=== PATIENT | male | born 1945 | race Caucasian/White ===

== ENCOUNTER 2017-01-09 10:26 | Inpatient (IN) | payer BC ==
--- NOTE | ~2017-01-09 | CN ---
Consultation Report [facility] [address] [place]. [address] NAME: AMOL PAYNE : 43 STATUS : ADM IN [facility]#: [id number] AGE: 71 ADM/REG DATE : 01/09/17 MR#: [id number] REPORT SERV DATE: 01/10/17 DICTATED BY: NKECHI TROY DATE: 01/09/17 REPORT STATUS : Draft TRANSCRIBED BY: MODL DATE: 01/09/17 CONSULTATION REPORT DATE OF CONSULTATION: Thank you for the opportunity to consult on this patient. This is a consult for neutropenic sepsis and for transfer to the critical care unit. HISTORY OF PRESENT ILLNESS: Mr. Payne is an unfortunate 71-year-old man with a history of acute myeloid leukemia, status post chemotherapy who was admitted from the Hematology/Oncology Service today because of pancytopenia and fever. He was found to be very pancytopenic with a fever of 101 at home. He was found to be hypotensive on admission and transferred to the intensive care for further management. PAST MEDICAL HISTORY: Prior to this is significant for AML, hypertension, hypercholesterolemia, and seasonal allergies. SOCIAL HISTORY: Negative for tobacco abuse, alcohol abuse, or illicit drug use. FAMILY HISTORY: Noncontributory to this acute presentation. REVIEW OF SYSTEMS: Review of 10 systems was performed with the patient and is positive for what was noted above. He denied any chest pain and the 10 systems were positive as noted. PHYSICAL EXAMINATION: GENERAL: He appears fatigued, but is in no acute respiratory distress. VITAL SIGNS: Remarkable for hypotension. HEENT: Normocephalic and atraumatic. NECK: Supple. No lymphadenopathy. No JVD. CHEST: Symmetric with good expansion bilaterally. LUNGS: Clear to auscultation and percussion bilaterally. CARDIOVASCULAR: He has S1 and S2, which are regular rate and rhythm. ABDOMEN: Benign. EXTREMITIES: He has petechiae throughout in the lower extremities, though they are scarce and has no clubbing or cyanosis. ASSESSMENT AND PLAN: Neutropenic sepsis. The patient is hypotensive, requiring pressors with septic shock in the setting of profound neutropenia and pancytopenia. He is receiving blood transfusion. He has been started on adequate antibiotic therapy and is now started on pressors. He has good central access with a recently placed port, peripheral access, and we will monitor him in the intensive care unit. Unfortunately, he has a high risk of complications and morbidity and mortality because of his pancytopenia and febrile illness while neutropenic. He is a full code per his decision and family request, and we will watch him while he is in the ICU. Consultation Report [facility] [address] [place]. [address] NAME: AMOL PAYNE : 43 STATUS : ADM IN PAT#: [id number] AGE: 71 ADM/REG DATE : 01/09/17 MR#: [id number] REPORT SERV DATE: 01/10/17 DICTATED BY: NKECHI TROY DATE: 01/09/17 REPORT STATUS : Draft TRANSCRIBED BY: EMELIA DATE: 01/09/17 DOC/EMELIA Nkechi Troy M.D. / [id number] CC: Maynor Tran II, MD
--- NOTE | ~2017-01-09 | HP ---
History And Physical [facility] [address] [place]. [address] NAME: AMOL PAYNE : 43 STATUS : ADM IN [facility]#: [id number] AGE: 71 ADM/REG DATE : 01/09/17 MR#: [id number] REPORT SERV DATE: 01/09/17 DICTATED BY: BRIDGETTE BANERJEE II DATE: 01/09/17 REPORT STATUS : Draft TRANSCRIBED BY: MODL DATE: 01/09/17 DATE OF ADMISSION: 01/09/2017 PRIMARY ONCOLOGIST: Dr. Duff. CHIEF COMPLAINT: Fever and chills in the setting of neutropenia. HISTORY OF PRESENT ILLNESS: The patient is a 71-year-old male with history of AML, status post chemotherapy, hypertension, hyperlipidemia, and allergies, who presented to Dr. Duff's office after a fever over 101 at home. He states, he recently had one of his lower right molars extracted due to an infection in the tooth with significant decay. He was having some fevers and pain prior to the extraction and was placed on oral antibiotics prior to surgery, but even after surgery, the patient continues to spike fevers and in Dr. Duff's office was up to 103. The patient is visibly in rigors and complains mainly of pain surrounding his lower right teeth. Otherwise, denies any nausea, vomiting, and diarrhea. Denies any shortness of breath, cough. He has chronic allergies with chronic sinusitis. Denies any dysuria. He has been extremely fatigued after recent chemotherapy. Otherwise, no other complaints. REVIEW OF SYSTEMS: 10-point review of systems otherwise negative except for HPI. PAST MEDICAL HISTORY: 1. AML on chemotherapy, followed by Dr. Duff. 2. Hyperlipidemia. 3. Hypertension. 4. Seasonal allergies. 5. Depression and anxiety. PAST SURGICAL HISTORY: Port placement. FAMILY HISTORY: Anemia in his mother. SOCIAL HISTORY: The patient denies any alcohol, tobacco, or drug use. He is currently and has been a commercial real estate broker. HOME MEDICATIONS: Currently pending refrigerator repair technician evaluation. PHYSICAL EXAMINATION: VITAL SIGNS: Temperature 103.2, pulse 120, respirations 20, O2 saturation 98% on room air. GENERAL: The patient is alert and oriented x3, in rigors, no acute distress. NECK: Supple. Nontender. No lymphadenopathy or thyromegaly. HEENT: Mucous membranes. Right lower premolar recently extracted with some necrotic- appearing gingival tissue and some possible slight mild erythema, but no obvious abscess or odontogenic process, otherwise pupils equal, round, reactive to light. Conjunctivae clear. RESPIRATORY: Lungs clear to auscultation bilaterally. No wheezes, rhonchi, or rales. History And Physical [address] [address] NAME: AMOL PAYNE : 43 STATUS : ADM IN [facility]#: [id number] AGE: 71 ADM/REG DATE : 01/09/17 MR#: [id number] REPORT SERV DATE: 01/09/17 DICTATED BY: BRIDGETTE BANERJEE II DATE: 01/09/17 REPORT STATUS : Draft TRANSCRIBED BY: EMELIA DATE: 01/09/17 Nonlabored breathing. CARDIOVASCULAR: Regular rate and rhythm. No murmurs, rubs, or gallops. ABDOMEN: Soft, nontender, nondistended. Normoactive bowel sounds. EXTREMITIES: No cyanosis, clubbing, or edema. SKIN: No lesions, rashes, or wounds. NEURO: No focal deficits. LABORATORY DATA: From the office today showed white blood cell count of 0.3, hemoglobin of 5.8, platelets 2, other labs pending. ASSESSMENT AND PLAN: The patient is a 71-year-old male with: 1. Febrile neutropenia with most apparent source likely odontogenic. We will start him on Zosyn. Blood cultures have been drawn. We will also check a UA and a chest x-ray. 2. Recent odontogenic infection, status post tooth extraction. No obvious other areas of abscessed teeth. We will treat as per above. 3. Acute myeloid leukemia. Chemo per Dr. Duff. 4. Pancytopenia, hemoglobin is quite low as well as platelets, so we will transfuse both. The patient is full code. ARABELLA/EMELIA Bridgette Banerjee II, MD / [id number] CC: MD Ba Burris II, MD
--- NOTE | ~2017-01-09 | IDS ---
Interim Discharge Summary [facility] [address] [place]. [address] NAME: AMOL PAYNE : 43 STATUS : ADM IN [facility]#: [id number] AGE: 71 ADM/REG DATE : 01/09/17 MR#: [id number] REPORT SERV DATE: 01/14/17 DICTATED BY: JAMES MARISCAL IV DATE: 01/14/17 REPORT STATUS : Draft TRANSCRIBED BY: MODOmar DATE: 01/14/17 ADMISSION DATE: 01/09/2017 DISCHARGE DATE: DATE OF TRANSFER TO THE ICU: 01/10/2017. DATE OF TRANSFER TO THE FLOOR: 01/14/2017. ADMITTING DIAGNOSES: 1. Enterobacter sepsis with shock. 2. Neutropenic fevers. 3. Acute myelogenous leukemia. 4. Recent removal of a decayed molar. 5. Hypertension. 6. Elevated cholesterol. 7. Depression. CONSULTANTS: Infectious Disease was consulted on 01/11/2017 and continued to follow the patient. [facility] had been consulted on admission and continued to follow the patient as well. PROCEDURES: The patient is scheduled to undergo a facial CT scan with contrast today. The patient has received a total of two packs of platelets and 5 units of packed red blood cells. CURRENT MEDICATIONS: The patient is on Granix 480 mcg subcu daily, Lexapro 10 mg daily, level 2 insulin sliding scale twice a day, Protonix 40 mg daily, Xanax 0.5 mg at bedtime, and Zosyn 3.375 g q.8 hours. HOSPITAL COURSE: The patient was admitted to the hospitalist service on 01/09/2017 with neutropenic fevers. Because of hypotension, he was transferred to the ICU on 01/10/2017. He required vasopressors until 01/13/2017, at which time, they were successfully discontinued. He had 1 out of 2 blood cultures positive for Enterobacter from his port. ID was consulted and he had gentamicin added to his Zosyn with discontinuation of empiric vancomycin. The patient noted clinical improvement, however, remained neutropenic. He had Granix added by [facility] today. He had evidence for his previous tooth pull with some macerated tissue at the site, however, no obvious abnormalities. However, because of persistent discomfort in his neutropenic state, a facial CT with contrast was ordered. He was initially hyperglycemic with insulin sliding scale, which has been decreased to b.i.d. He has required transfusions of blood and platelets for low counts which are continuing to be followed. It was felt that he was stable for transfer back to the floor and orders were written on 01/14/2017 with the hospitalist asked to resume responsibilities. NM/EMELIA Interim Discharge Summary [facility] [id number] [place]. [address] NAME: AMOL PAYNE : 43 STATUS : ADM IN PAT#: [id number] AGE: 71 ADM/REG DATE : 01/09/17 MR#: [id number] REPORT SERV DATE: 01/14/17 DICTATED BY: JAMES MARISCAL IV DATE: 01/14/17 REPORT STATUS : Draft TRANSCRIBED BY: EMELIA DATE: 01/14/17 James Mariscal IV, M.D. / [id number] CC: MD Ba Burris II, MD
--- NOTE | ~2017-01-09 | DS ---
Discharge Summary [facility] [address] [place]. [address] NAME: AMOL PAYNE : 43 STATUS : DIS IN PAT#: [id number] AGE: 71 ADM/REG DATE : 01/09/17 MR#: [id number] REPORT SERV DATE: 01/20/17 DICTATED BY: MER WATKINS DATE: 01/20/17 REPORT STATUS : Draft TRANSCRIBED BY: MODL DATE: 01/20/17 ADMISSION DATE: 01/09/2017 DISCHARGE DATE: 01/20/2017 REASON FOR ADMISSION: Septic shock secondary to Enterobacter bacteremia. Please refer to Dr. Luigi Troy's history and physical dated 01/10/2017, for complete details regarding the patient's admission. In brief, the patient was initially admitted to the Hospitalist Service and transferred over to the Super[facility] Department Service for developing a septic shock. HOSPITAL COURSE: From admission to 01/14/2017, please refer to the interim summary done by the applied marine physics professor. In brief, the patient was treated for Enterobacter bacteremia causing septic shock. Infectious Disease was consulted. Dr. Perry followed the patient throughout. He was weaned off pressors and then transferred to the floor on 01/15/2017. Dr. Knott who is the patient's primary oncologist had followed the patient throughout the hospitalization for his AML. He had been treated with broad-spectrum antibiotics. Infectious Disease was following the patient after he was transferred to the floor. He continued to have neutropenic fever of unknown etiology. Dr. Mixon was consulted who was the surgeon, who took out the patient's teeth. Dr. Lora had ordered a CT scan of the patient's face, which was reported as cellulitis in the surrounding soft tissues along with concern of a periapical abscess; however, Dr. Mixon disagreed. At any rate, Infectious Disease has had broadened spectrum of the antibiotics including Flagyl and Diflucan and valacyclovir as the patient was developing fever blisters. Repeat blood culture showed no growth today. He has finally been afebrile for the past 48 hours, and he has reached maximal hospitalization. He did receive several platelet transfusions. Keeping in mind that he has been afebrile and on just oral Levaquin, he will be discharged home today in stable condition. DISCHARGE DIAGNOSES: Septic shock secondary to Enterobacter bacteremia, now resolved; pancytopenia secondary to AML; neutropenic fever, now afebrile for 48 hours; major depressive disorder, anxiety disorder; AML; acute on chronic anemia. PROCEDURES: Include consultation with Dr. Mixon, intensive care unit monitoring, consultation with Dr. Jenkinss, Dr. Mckeon, and Dr. Perry; CT scan of the face with contrast; chest x-ray. DISCHARGE MEDICATIONS: Include Xanax 0.5 mg at bedtime, Peridex 15 mL three times a day, Lexapro 10 mg daily, gabapentin 100 mg twice a day, Levaquin 750 mg every day for at least two weeks, Protonix 40 mg daily, vitamin B12, multivitamin, Refresh vitamin D, tramadol p.r.n. pain, Lortab 5/325 mg every six hours as needed for pain #30 given. The patient will follow up closely with Dr. Knott in two days as an outpatient. Spending over 30 minutes in discharge planning and coordination of care of Mr. Payne. DICTATED BY: Mer Watkins MD Discharge Summary [address] [address] NAME: AMOL PAYNE : 43 STATUS : DIS IN PAT#: [id number] AGE: 71 ADM/REG DATE : 01/09/17 MR#: [id number] REPORT SERV DATE: 01/20/17 DICTATED BY: MER WATKINS DATE: 01/20/17 REPORT STATUS : Draft TRANSCRIBED BY: MODL DATE: 01/20/17 CHEN Mer Watkins MD / [id number] CC: MD Ba Pruitt MD John Spann, D.D.S. Mark Anderson, M.D. Edward Arrowsmith, M.D.
[~2017-01-09 10:26] MED LIST: ALEVE220 MG PO; ALLEGRA180 PO; ALLERGY SHOT IM; ASAB PO; CO Q-10100 MG PO; CO Q-1050 MG PO; DSS PO; FISH OIL PO; FLAXSEED PO; FLONASE NAS; FOLATE PO; KRILLOIL PO; LEXAPRO10 PO; LOPID6 PO; MAGOX4 PO; MCZ125 PO; MULTIVIT/MIN PO; OXYCOD PO; PRIN20 PO; PROBIOTIC PO; PROSTATE PLUS; PROTONIX PO; REFRES1; STOOL SOFTENER OTC PO; VITAMIN B-121000 MC1 SL; VITAMIN D2000 UNIT PO; VITAMIN D3 PO; VITC500 PO; X5 PO; ZOFRAN4 PO; ZYRTEC ALLGY10 MG PO; [UNRECOGNIZED DRUG - OTHER]; [UNRECOGNIZED DRUG - OTHER] PO
[2017-01-09] MEDS ORDERED: NORCO1 TAB PO (12:08)
[2017-01-09] MEDS ORDERED: ULTRAM50 PO (12:10)
[2017-01-09] MEDS ORDERED: AMOXIL500C PO (12:10)
[2017-01-09 12:25] LABS: INTERNATIONAL NORMAL RATI 1.3 UNITS (-); PARTIAL THROMBO TIME 37.7 SEC (22.5-37.2); PROTIME (NOT ORD) 15.7 SEC (12.0-14.5)
[2017-01-09 13:14] LABS: A/G RATIO 0.9 (0.7-1.9); ALBUMIN 3.5 G/DL (3.5-5.0); BUN (BLOOD UREA NITROGEN) 17 MG/DL (6-23); CHLORIDE, SERUM 101 MMOL/L (96-112); CO2 (CARBON DIOXIDE) 27 MMOL/L (24-34); CREATININE 0.95 MG/DL (0.70-1.30); GFR AFRICAN AMERICAN 92 ML/MIN (>=60); GFR NON AFRICAN AMERICAN 80 ML/MIN (>=60); GLOBULIN 3.9 G/DL (2.5-4.1); POTASSIUM, SERUM 4.4 MMOL/L (3.5-5.3); SGOT(AST) 15 U/L (5-40); SGPT(ALT) 21 U/L (5-65); SODIUM, SERUM 137 MMOL/L (135-148); TOTAL PROTEIN 7.4 G/DL (6.0-8.5)
[2017-01-09 13:15] LABS: ALKALINE PHOSPHATASE 99 U/L (45-117); GLUCOSE, SERUM 140 MG/DL (60-99); TOTAL BILIRUBIN 1.2 MG/DL (0-1.2); ULTRASENSITIVE TSH 0.806 MCIU/ML (0.358-3.740)
[2017-01-09 18:35] LABS: ASCORBIC ACID (UR NOT ORDER) NEG (NEG); BILIRUBIN, URINE NEGATIVE (NEG); KETONE, URINE NEGATIVE (NEG); LEUKOCYTE ESTERASE(NOT OR NEG (NEG); WBC (NOT ORDERED) (RFLEX) 1 (0-5)
[2017-01-09 21:44] LABS: RBC DISTRIBUTION WIDTH 14.4 % (12.0-16.0)
[2017-01-09 21:49] LABS: RED CELL COUNT 1.26 10/6/uL (4.7-6.1); WHITE BLOOD CELLS 0.1 10/3/uL (4.5-10.5)
[2017-01-09 21:51] LABS: HEMATOCRIT 11.7 % (40.0-51.0); HEMOGLOBIN 4.1 g/dL (13.6-17.8); MEAN CORPUSCULAR HEMOGLOB 32.5 pg (26.0-34.0); MEAN CORPUSCULAR VOLUME 92.9 fL (80-100); PLATELET COUNT 3 10/3/uL (150-400)
[2017-01-09 21:54] LABS: MANUAL DIFF YES %
[2017-01-09 21:58] LABS: PROCALCITONIN 3.56 ng/mL (<0.5)
[2017-01-09 22:11] LABS: LYMPHOCYTES 95 %; MONOCYTES 5 %; MONOCYTES ABSOLUTE (CALC) 0.01 10/3/uL (0.21-1.20); TOTAL NUCLEATED CELLS 20
[2017-01-09 22:12] LABS: POIKILOCYTOSIS 1+ (5-10/OIF) (0-5/OIF)
[2017-01-10 04:40] LABS: CHLORIDE, SERUM 105 MMOL/L (96-112); CO2 (CARBON DIOXIDE) 24 MMOL/L (24-34); CREATININE 1.24 MG/DL (0.70-1.30); GFR AFRICAN AMERICAN 67 ML/MIN (>=60); GFR NON AFRICAN AMERICAN 58 ML/MIN (>=60); GLUCOSE, SERUM 162 MG/DL (60-99); POTASSIUM, SERUM 4.3 MMOL/L (3.5-5.3); SODIUM, SERUM 137 MMOL/L (135-148)
[2017-01-10 04:41] LABS: BUN (BLOOD UREA NITROGEN) 27 MG/DL (6-23); CALCIUM, SERUM 7.9 MG/DL (8.5-10.4)
[2017-01-10 04:46] LABS: MEAN CORPUS HGB CONC 35.6 g/dL (32.0-36.0); MEAN CORPUSCULAR HEMOGLOB 32.2 pg (26.0-34.0); MEAN CORPUSCULAR VOLUME 90.5 fL (80-100); RBC DISTRIBUTION WIDTH 14.2 % (12.0-16.0)
[2017-01-10 04:52] LABS: HEMOGLOBIN 6.4 g/dL (13.6-17.8); MANUAL DIFF YES %; PLATELET COUNT 25 10/3/uL (150-400); RED CELL COUNT 1.99 10/6/uL (4.7-6.1); WHITE BLOOD CELLS 0.2 10/3/uL (4.5-10.5)
[2017-01-10 05:50] LABS: PROCALCITONIN 84.47 ng/mL (<0.5)
[2017-01-10 06:23] LABS: BAND NEUTROPHILS 4 %; EOSINOPHILS 4 %; EOSINOPHILS ABSOLUTE (CALC) 0.01 10/3/uL (0.0-0.53); LYMPHOCYTES 86 %; LYMPHOCYTES ABSOLUTE (CALC) 0.17 10/3/uL (0.67-4.30); NEUTROPHILS ABSOLUTE (CALC) 0.02 10/3/uL (2.02-8.40); SEGMENTED NEUTROPHIL (0) 6 %; TOTAL NUCLEATED CELLS 50
[2017-01-10 06:24] LABS: POLYCHROMASIA 1+ (2-5/OIF) (0-1/OIF)
[2017-01-10 14:23] LABS: HEMOGLOBIN 7.4 g/dL (13.6-17.8); MEAN CORPUS HGB CONC 36.1 g/dL (32.0-36.0); MEAN CORPUSCULAR HEMOGLOB 31.8 pg (26.0-34.0); MEAN PLATELET VOLUME 10.7 fL (9.2-13.0); RBC DISTRIBUTION WIDTH 14.6 % (12.0-16.0); RED CELL COUNT 2.33 10/6/uL (4.7-6.1)
[2017-01-10 14:24] LABS: HEMOGLOBIN 7.4 g/dL (13.6-17.8)
[2017-01-10 14:25] LABS: HEMATOCRIT 20.5 % (40.0-51.0); PLATELET COUNT 14 10/3/uL (150-400); WHITE BLOOD CELLS 0.4 10/3/uL (4.5-10.5)
[2017-01-10 14:27] LABS: MANUAL DIFF YES %
[2017-01-10 14:28] LABS: HEMATOCRIT 20.4 % (40.0-51.0)
[2017-01-10 17:27] LABS: LYMPHOCYTES 91 %; LYMPHOCYTES ABSOLUTE (CALC) 0.36 10/3/uL (0.67-4.30); MONOCYTES 2 %; MONOCYTES ABSOLUTE (CALC) 0.01 10/3/uL (0.21-1.20); NEUTROPHILS ABSOLUTE (CALC) 0.03 10/3/uL (2.02-8.40); SEGMENTED NEUTROPHIL (0) 7 %; TOTAL NUCLEATED CELLS 100
[2017-01-10 17:29] LABS: ELLIPTOCYTES 1+ (3-10/OIF) (0-2/OIF); TEARDROP SHAPED RBCS OCC (0-2/OIF)
[2017-01-10 20:49] LABS: HEMOGLOBIN 7.5 g/dL (13.6-17.8)
[2017-01-10 20:53] LABS: HEMATOCRIT 20.2 % (40.0-51.0)
[2017-01-11 03:51] LABS: HEMATOCRIT 21.3 % (40.0-51.0); HEMOGLOBIN 7.7 g/dL (13.6-17.8); MEAN CORPUS HGB CONC 36.2 g/dL (32.0-36.0); MEAN CORPUSCULAR HEMOGLOB 31.6 pg (26.0-34.0); MEAN CORPUSCULAR VOLUME 87.3 fL (80-100); MEAN PLATELET VOLUME 11.4 fL (9.2-13.0); RED CELL COUNT 2.44 10/6/uL (4.7-6.1)
[2017-01-11 03:52] LABS: MANUAL DIFF YES %; PLATELET COUNT 13 10/3/uL (150-400); WHITE BLOOD CELLS 0.2 10/3/uL (4.5-10.5)
[2017-01-11 04:06] LABS: A/G RATIO 0.7 (0.7-1.9); ALBUMIN 2.7 G/DL (3.5-5.0); BUN (BLOOD UREA NITROGEN) 17 MG/DL (6-23); CALCIUM, SERUM 8.4 MG/DL (8.5-10.4); CHLORIDE, SERUM 108 MMOL/L (96-112); CO2 (CARBON DIOXIDE) 26 MMOL/L (24-34); CREATININE 0.88 MG/DL (0.70-1.30); GFR AFRICAN AMERICAN 99 ML/MIN (>=60); GFR NON AFRICAN AMERICAN 86 ML/MIN (>=60); GLUCOSE, SERUM 141 MG/DL (60-99); POTASSIUM, SERUM 3.8 MMOL/L (3.5-5.3); SGOT(AST) 19 U/L (5-40); SGPT(ALT) 21 U/L (5-65); SODIUM, SERUM 141 MMOL/L (135-148); TOTAL BILIRUBIN 1.3 MG/DL (0-1.2); TOTAL PROTEIN 6.7 G/DL (6.0-8.5)
[2017-01-11 04:07] LABS: ALKALINE PHOSPHATASE 83 U/L (45-117)
[2017-01-11 04:40] LABS: PROCALCITONIN 55.34 ng/mL (<0.5)
[2017-01-11 05:26] LABS: LYMPHOCYTES 96 %; LYMPHOCYTES ABSOLUTE (CALC) 0.19 10/3/uL (0.67-4.30); NEUTROPHILS ABSOLUTE (CALC) 0.01 10/3/uL (2.02-8.40); SEGMENTED NEUTROPHIL (0) 4 %; TOTAL NUCLEATED CELLS 25
[2017-01-11 05:28] LABS: ELLIPTOCYTES 1+ (3-10/OIF) (0-2/OIF); TEARDROP SHAPED RBCS OCC (0-2/OIF)
[2017-01-11 10:03] LABS: HEMOGLOBIN 7.3 g/dL (13.6-17.8)
[2017-01-11 10:08] LABS: HEMATOCRIT 19.8 % (40.0-51.0)
[2017-01-11 15:21] LABS: HEMOGLOBIN 7.2 g/dL (13.6-17.8)
[2017-01-11 15:25] LABS: HEMATOCRIT 19.9 % (40.0-51.0)
[2017-01-11 21:14] LABS: HEMOGLOBIN 7.7 g/dL (13.6-17.8)
[2017-01-11 21:18] LABS: HEMATOCRIT 20.8 % (40.0-51.0)
[2017-01-12 03:59] LABS: MEAN CORPUS HGB CONC 35.5 g/dL (32.0-36.0); MEAN CORPUSCULAR HEMOGLOB 31.5 pg (26.0-34.0); MEAN CORPUSCULAR VOLUME 88.7 fL (80-100); RBC DISTRIBUTION WIDTH 14.6 % (12.0-16.0); RED CELL COUNT 2.22 10/6/uL (4.7-6.1)
[2017-01-12 04:01] LABS: HEMATOCRIT 19.7 % (40.0-51.0); PLATELET COUNT 8 10/3/uL (150-400); WHITE BLOOD CELLS 0.2 10/3/uL (4.5-10.5)
[2017-01-12 04:02] LABS: MANUAL DIFF YES %
[2017-01-12 04:18] LABS: A/G RATIO 0.6 (0.7-1.9); ALBUMIN 2.4 G/DL (3.5-5.0); BUN (BLOOD UREA NITROGEN) 14 MG/DL (6-23); CALCIUM, SERUM 8.4 MG/DL (8.5-10.4); CHLORIDE, SERUM 109 MMOL/L (96-112); CO2 (CARBON DIOXIDE) 27 MMOL/L (24-34); CREATININE 0.74 MG/DL (0.70-1.30); GFR AFRICAN AMERICAN 107 ML/MIN (>=60); GFR NON AFRICAN AMERICAN 92 ML/MIN (>=60); GLOBULIN 3.8 G/DL (2.5-4.1); GLUCOSE, SERUM 129 MG/DL (60-99); POTASSIUM, SERUM 3.9 MMOL/L (3.5-5.3); SGOT(AST) 17 U/L (5-40); SGPT(ALT) 22 U/L (5-65); SODIUM, SERUM 139 MMOL/L (135-148); TOTAL BILIRUBIN 1.3 MG/DL (0-1.2); TOTAL PROTEIN 6.2 G/DL (6.0-8.5)
[2017-01-12 04:21] LABS: ALKALINE PHOSPHATASE 96 U/L (45-117)
[2017-01-12 04:32] LABS: LYMPHOCYTES 95 %; LYMPHOCYTES ABSOLUTE (CALC) 0.19 10/3/uL (0.67-4.30); NEUTROPHILS ABSOLUTE (CALC) 0.01 10/3/uL (2.02-8.40); SEGMENTED NEUTROPHIL (0) 5 %; TOTAL NUCLEATED CELLS 100
[2017-01-12 04:33] LABS: RBC MORPHOLOGY NORM (NORMAL)
[2017-01-12 09:08] LABS: HEMOGLOBIN 8.2 g/dL (13.6-17.8)
[2017-01-12 09:09] LABS: HEMATOCRIT 22.7 % (40.0-51.0)
[2017-01-12 10:40] LABS: PHOSPHORUS, SERUM 1.8 MG/DL (2.5-4.5)
[2017-01-12 14:45] LABS: HEMATOCRIT 17.9 % (40.0-51.0); HEMOGLOBIN 6.6 g/dL (13.6-17.8)
[2017-01-12 16:33] LABS: HEMATOCRIT 16.7 % (40.0-51.0); HEMOGLOBIN 6.1 g/dL (13.6-17.8)
[2017-01-12 21:21] LABS: WBC (NOT ORDERED) (RFLEX) 0 (0-5)
[2017-01-12 21:35] LABS: ASCORBIC ACID (UR NOT ORDER) NEG (NEG); BILIRUBIN, URINE NEGATIVE (NEG); KETONE, URINE NEGATIVE (NEG); LEUKOCYTE ESTERASE(NOT OR NEG (NEG)
[2017-01-12 22:21] LABS: HEMATOCRIT 18.3 % (40.0-51.0); HEMOGLOBIN 6.7 g/dL (13.6-17.8)
[2017-01-13 06:03] LABS: HEMATOCRIT 21.4 % (40.0-51.0); HEMOGLOBIN 7.7 g/dL (13.6-17.8); MANUAL DIFF YES %; MEAN CORPUSCULAR HEMOGLOB 31.3 pg (26.0-34.0); MEAN PLATELET VOLUME 9.4 fL (9.2-13.0); PLATELET COUNT 26 10/3/uL (150-400); RBC DISTRIBUTION WIDTH 15.2 % (12.0-16.0); RED CELL COUNT 2.46 10/6/uL (4.7-6.1); WHITE BLOOD CELLS 0.3 10/3/uL (4.5-10.5)
[2017-01-13 06:13] LABS: ALBUMIN 2.4 G/DL (3.5-5.0); BUN (BLOOD UREA NITROGEN) 11 MG/DL (6-23); CALCIUM, SERUM 8.9 MG/DL (8.5-10.4); CHLORIDE, SERUM 105 MMOL/L (96-112); CO2 (CARBON DIOXIDE) 29 MMOL/L (24-34); GFR AFRICAN AMERICAN 109 ML/MIN (>=60); GFR NON AFRICAN AMERICAN 94 ML/MIN (>=60); GLUCOSE, SERUM 102 MG/DL (60-99); POTASSIUM, SERUM 3.5 MMOL/L (3.5-5.3); SODIUM, SERUM 136 MMOL/L (135-148)
[2017-01-13 06:33] LABS: LYMPHOCYTES 90 %; LYMPHOCYTES ABSOLUTE (CALC) 0.27 10/3/uL (0.67-4.30); MONOCYTES 10 %; MONOCYTES ABSOLUTE (CALC) 0.03 10/3/uL (0.21-1.20); TOTAL NUCLEATED CELLS 10
[2017-01-13 06:34] LABS: POLYCHROMASIA 1+ (2-5/OIF) (0-1/OIF)
[2017-01-13 08:11] LABS: HEMOGLOBIN 8.5 g/dL (13.6-17.8)
[2017-01-13 08:14] LABS: HEMATOCRIT 23.7 % (40.0-51.0)
[2017-01-13 11:16] LABS: PROCALCITONIN 14.68 ng/mL (<0.5)
[2017-01-14 02:25] LABS: MEAN CORPUS HGB CONC 34.7 g/dL (32.0-36.0); MEAN CORPUSCULAR HEMOGLOB 30.8 pg (26.0-34.0); MEAN CORPUSCULAR VOLUME 88.9 fL (80-100); MEAN PLATELET VOLUME 9.9 fL (9.2-13.0); RBC DISTRIBUTION WIDTH 15.6 % (12.0-16.0); RED CELL COUNT 1.98 10/6/uL (4.7-6.1)
[2017-01-14 02:28] LABS: HEMATOCRIT 17.6 % (40.0-51.0); HEMOGLOBIN 6.1 g/dL (13.6-17.8); WHITE BLOOD CELLS 0.2 10/3/uL (4.5-10.5)
[2017-01-14 02:29] LABS: PLATELET COUNT 21 10/3/uL (150-400)
[2017-01-14 02:30] LABS: MANUAL DIFF YES %
[2017-01-14 02:39] LABS: ALBUMIN 2.5 G/DL (3.5-5.0); BUN (BLOOD UREA NITROGEN) 11 MG/DL (6-23); CHLORIDE, SERUM 104 MMOL/L (96-112); CO2 (CARBON DIOXIDE) 29 MMOL/L (24-34); CREATININE 0.71 MG/DL (0.70-1.30); GFR AFRICAN AMERICAN 109 ML/MIN (>=60); GFR NON AFRICAN AMERICAN 94 ML/MIN (>=60); GLUCOSE, SERUM 100 MG/DL (60-99); PHOSPHORUS, SERUM 3.1 MG/DL (2.5-4.5); POTASSIUM, SERUM 4.2 MMOL/L (3.5-5.3); SODIUM, SERUM 133 MMOL/L (135-148)
[2017-01-14 02:47] LABS: LYMPHOCYTES 100 %; RBC MORPHOLOGY NORM (NORMAL); TOTAL NUCLEATED CELLS 1
[2017-01-14 16:08] LABS: HEMATOCRIT 23.1 % (40.0-51.0)
[2017-01-15 06:16] LABS: MEAN CORPUS HGB CONC 35.2 g/dL (32.0-36.0); MEAN CORPUSCULAR HEMOGLOB 31.8 pg (26.0-34.0); MEAN CORPUSCULAR VOLUME 90.5 fL (80-100); RBC DISTRIBUTION WIDTH 14.6 % (12.0-16.0)
[2017-01-15 06:17] LABS: HEMATOCRIT 25.6 % (40.0-51.0); PLATELET COUNT 13 10/3/uL (150-400); RED CELL COUNT 2.83 10/6/uL (4.7-6.1); WHITE BLOOD CELLS 0.3 10/3/uL (4.5-10.5)
[2017-01-15 06:20] LABS: MANUAL DIFF YES %
[2017-01-15 06:24] LABS: BUN (BLOOD UREA NITROGEN) 13 MG/DL (6-23); CALCIUM, SERUM 9.5 MG/DL (8.5-10.4); CHLORIDE, SERUM 101 MMOL/L (96-112); CO2 (CARBON DIOXIDE) 27 MMOL/L (24-34); CREATININE 0.77 MG/DL (0.70-1.30); GFR AFRICAN AMERICAN 105 ML/MIN (>=60); GFR NON AFRICAN AMERICAN 91 ML/MIN (>=60); GLUCOSE, SERUM 114 MG/DL (60-99); POTASSIUM, SERUM 4.3 MMOL/L (3.5-5.3); SODIUM, SERUM 130 MMOL/L (135-148)
[2017-01-15 06:46] LABS: LYMPHOCYTES 100 %; TOTAL NUCLEATED CELLS 100
[2017-01-15 06:47] LABS: RBC MORPHOLOGY NORM (NORMAL)
[2017-01-16 05:34] LABS: HEMATOCRIT 24.8 % (40.0-51.0); HEMOGLOBIN 8.5 g/dL (13.6-17.8); MEAN CORPUS HGB CONC 34.3 g/dL (32.0-36.0); MEAN CORPUSCULAR HEMOGLOB 31.1 pg (26.0-34.0); MEAN CORPUSCULAR VOLUME 90.8 fL (80-100); RBC DISTRIBUTION WIDTH 14.3 % (12.0-16.0); RED CELL COUNT 2.73 10/6/uL (4.7-6.1)
[2017-01-16 05:36] LABS: WHITE BLOOD CELLS 0.3 10/3/uL (4.5-10.5)
[2017-01-16 05:37] LABS: MANUAL DIFF YES %; PLATELET COUNT 9 10/3/uL (150-400)
[2017-01-16 05:45] LABS: ALBUMIN 2.7 G/DL (3.5-5.0); BUN (BLOOD UREA NITROGEN) 16 MG/DL (6-23); CALCIUM, SERUM 9.3 MG/DL (8.5-10.4); CHLORIDE, SERUM 100 MMOL/L (96-112); CO2 (CARBON DIOXIDE) 25 MMOL/L (24-34); CREATININE 0.77 MG/DL (0.70-1.30); GFR AFRICAN AMERICAN 105 ML/MIN (>=60); GFR NON AFRICAN AMERICAN 91 ML/MIN (>=60); GLUCOSE, SERUM 114 MG/DL (60-99); PHOSPHORUS, SERUM 2.3 MG/DL (2.5-4.5); POTASSIUM, SERUM 4.5 MMOL/L (3.5-5.3); SODIUM, SERUM 132 MMOL/L (135-148)
[2017-01-16 06:26] LABS: LYMPHOCYTES 100 %; RBC MORPHOLOGY NORM (NORMAL); TOTAL NUCLEATED CELLS 5
[2017-01-17 06:15] LABS: ALBUMIN 2.8 G/DL (3.5-5.0); CALCIUM, SERUM 9.4 MG/DL (8.5-10.4); CHLORIDE, SERUM 99 MMOL/L (96-112); CO2 (CARBON DIOXIDE) 27 MMOL/L (24-34); CREATININE 0.85 MG/DL (0.70-1.30); GFR AFRICAN AMERICAN 101 ML/MIN (>=60); GFR NON AFRICAN AMERICAN 87 ML/MIN (>=60); GLUCOSE, SERUM 113 MG/DL (60-99); PHOSPHORUS, SERUM 2.5 MG/DL (2.5-4.5); POTASSIUM, SERUM 3.9 MMOL/L (3.5-5.3); SODIUM, SERUM 132 MMOL/L (135-148)
[2017-01-17 06:16] LABS: BUN (BLOOD UREA NITROGEN) 21 MG/DL (6-23)
[2017-01-17 06:19] LABS: HEMATOCRIT 22.5 % (40.0-51.0); HEMOGLOBIN 7.7 g/dL (13.6-17.8); MEAN CORPUS HGB CONC 34.2 g/dL (32.0-36.0); MEAN CORPUSCULAR HEMOGLOB 30.7 pg (26.0-34.0); MEAN CORPUSCULAR VOLUME 89.6 fL (80-100); MEAN PLATELET VOLUME 10.4 fL (9.2-13.0); PLATELET COUNT 22 10/3/uL (150-400); RED CELL COUNT 2.51 10/6/uL (4.7-6.1); WHITE BLOOD CELLS 0.3 10/3/uL (4.5-10.5)
[2017-01-17 06:20] LABS: MANUAL DIFF YES %
[2017-01-17 07:13] LABS: LYMPHOCYTES 100 %; RBC MORPHOLOGY NORM (NORMAL); TOTAL NUCLEATED CELLS 100
[2017-01-17 12:40] LABS: ALKALINE PHOSPHATASE 146 U/L (45-117); INDIRECT BILIRUBIN(NOT ORDER) 0.7 MG/DL (0.1-0.9); SGOT(AST) 11 U/L (5-40); SGPT(ALT) 27 U/L (5-65); TOTAL BILIRUBIN 1.7 MG/DL (0-1.2); TOTAL PROTEIN 7.5 G/DL (6.0-8.5)
[2017-01-18 05:19] LABS: HEMATOCRIT 24.5 % (40.0-51.0); HEMOGLOBIN 8.2 g/dL (13.6-17.8); MEAN CORPUS HGB CONC 33.5 g/dL (32.0-36.0); MEAN CORPUSCULAR HEMOGLOB 30.8 pg (26.0-34.0); MEAN CORPUSCULAR VOLUME 92.1 fL (80-100); MEAN PLATELET VOLUME 10.9 fL (9.2-13.0); PLATELET COUNT 18 10/3/uL (150-400); RBC DISTRIBUTION WIDTH 13.9 % (12.0-16.0); RED CELL COUNT 2.66 10/6/uL (4.7-6.1); WHITE BLOOD CELLS 0.6 10/3/uL (4.5-10.5)
[2017-01-18 05:20] LABS: MANUAL DIFF YES %
[2017-01-18 05:45] LABS: ALBUMIN 2.8 G/DL (3.5-5.0); ALKALINE PHOSPHATASE 144 U/L (45-117); BUN (BLOOD UREA NITROGEN) 22 MG/DL (6-23); CALCIUM, SERUM 9.5 MG/DL (8.5-10.4); CHLORIDE, SERUM 99 MMOL/L (96-112); CO2 (CARBON DIOXIDE) 26 MMOL/L (24-34); GFR AFRICAN AMERICAN 103 ML/MIN (>=60); GFR NON AFRICAN AMERICAN 89 ML/MIN (>=60); GLUCOSE, SERUM 121 MG/DL (60-99); PHOSPHORUS, SERUM 1.9 MG/DL (2.5-4.5); POTASSIUM, SERUM 4.2 MMOL/L (3.5-5.3); SGOT(AST) 13 U/L (5-40); SGPT(ALT) 23 U/L (5-65); SODIUM, SERUM 131 MMOL/L (135-148); TOTAL PROTEIN 7.6 G/DL (6.0-8.5)
[2017-01-18 05:49] LABS: A/G RATIO 0.6 (0.7-1.9); GLOBULIN 4.8 G/DL (2.5-4.1); TOTAL BILIRUBIN 0.9 MG/DL (0-1.2)
[2017-01-18 06:52] LABS: LYMPHOCYTES 100 %; RBC MORPHOLOGY NORM (NORMAL); TOTAL NUCLEATED CELLS 100
[2017-01-19 10:31] LABS: HEMATOCRIT 24.8 % (40.0-51.0); HEMOGLOBIN 8.4 g/dL (13.6-17.8); MEAN CORPUS HGB CONC 33.9 g/dL (32.0-36.0); MEAN CORPUSCULAR HEMOGLOB 30.8 pg (26.0-34.0); MEAN CORPUSCULAR VOLUME 90.8 fL (80-100); MEAN PLATELET VOLUME 10.6 fL (9.2-13.0); RBC DISTRIBUTION WIDTH 13.9 % (12.0-16.0); RED CELL COUNT 2.73 10/6/uL (4.7-6.1)
[2017-01-19 10:32] LABS: MANUAL DIFF YES %; PLATELET COUNT 10 10/3/uL (150-400); WHITE BLOOD CELLS 0.3 10/3/uL (4.5-10.5)
[2017-01-19 10:43] LABS: BUN (BLOOD UREA NITROGEN) 17 MG/DL (6-23); CALCIUM, SERUM 9.7 MG/DL (8.5-10.4); CHLORIDE, SERUM 97 MMOL/L (96-112); CO2 (CARBON DIOXIDE) 28 MMOL/L (24-34); GFR AFRICAN AMERICAN 109 ML/MIN (>=60); GFR NON AFRICAN AMERICAN 94 ML/MIN (>=60); GLUCOSE, SERUM 128 MG/DL (60-99); PHOSPHORUS, SERUM 2.2 MG/DL (2.5-4.5); POTASSIUM, SERUM 4.1 MMOL/L (3.5-5.3); SODIUM, SERUM 133 MMOL/L (135-148)
[2017-01-19 10:53] LABS: LYMPHOCYTES 95 %; LYMPHOCYTES ABSOLUTE (CALC) 0.29 10/3/uL (0.67-4.30); NEUTROPHILS ABSOLUTE (CALC) 0.02 10/3/uL (2.02-8.40); SEGMENTED NEUTROPHIL (0) 5 %; TOTAL NUCLEATED CELLS 100
[2017-01-19 10:54] LABS: PLATELET ESTIMATE DEC (ADEQUATE); RBC MORPHOLOGY NORM (NORMAL)
[2017-01-20 06:22] LABS: HEMOGLOBIN 7.3 g/dL (13.6-17.8); MEAN CORPUS HGB CONC 34.3 g/dL (32.0-36.0); MEAN CORPUSCULAR HEMOGLOB 31.3 pg (26.0-34.0); MEAN CORPUSCULAR VOLUME 91.4 fL (80-100); MEAN PLATELET VOLUME 10.2 fL (9.2-13.0); RBC DISTRIBUTION WIDTH 13.7 % (12.0-16.0); RED CELL COUNT 2.33 10/6/uL (4.7-6.1)
[2017-01-20 06:23] LABS: HEMATOCRIT 21.3 % (40.0-51.0); MANUAL DIFF YES %; PLATELET COUNT 30 10/3/uL (150-400); WHITE BLOOD CELLS 0.3 10/3/uL (4.5-10.5)
[2017-01-20 06:33] LABS: CALCIUM, SERUM 9.2 MG/DL (8.5-10.4); CHLORIDE, SERUM 98 MMOL/L (96-112); CO2 (CARBON DIOXIDE) 27 MMOL/L (24-34); CREATININE 0.59 MG/DL (0.70-1.30); GFR AFRICAN AMERICAN 117 ML/MIN (>=60); GFR NON AFRICAN AMERICAN 101 ML/MIN (>=60); GLUCOSE, SERUM 106 MG/DL (60-99); PHOSPHORUS, SERUM 2.2 MG/DL (2.5-4.5); POTASSIUM, SERUM 4.2 MMOL/L (3.5-5.3); SODIUM, SERUM 132 MMOL/L (135-148)
[2017-01-20 06:37] LABS: BUN (BLOOD UREA NITROGEN) 12 MG/DL (6-23)
[2017-01-20 06:59] LABS: LYMPHOCYTES 100 %; TOTAL NUCLEATED CELLS 100
[2017-01-20 07:00] LABS: POLYCHROMASIA 1+ (2-5/OIF) (0-1/OIF)
[2017-01-20] MEDS ORDERED: ULTRAM50 PO (11:13)
[2017-01-20] MEDS ORDERED: NEUR100 PO ×2 (11:14→11:16)
[2017-01-20] MEDS ORDERED: LEVAQUIN750 MG PO (11:14)
[2017-01-20] MEDS ORDERED: NORCO1 TA1 PO (11:17)
[2017-01-20] MEDS ORDERED: PERIDEX (11:17)
[2017-04-15] MEDS ORDERED: PROTONIX PO (21:58)
[2017-04-15] MEDS ORDERED: ULTRAM50 PO (21:58)
[2017-04-15] MEDS ORDERED: ZOVIRAX400 MG PO (21:59)
[2017-04-15] MEDS ORDERED: X25 PO (21:59)
[2017-04-15] MEDS ORDERED: AUG875 PO (22:00)
[2017-04-15] MEDS ORDERED: MOBIC7.5 PO (22:01)
[2017-04-15] MEDS ORDERED: SINGULAIR1 PO (22:02)
[2017-04-15] MEDS ORDERED: [UNRECOGNIZED DRUG - OTHER] PO (22:04)
[2017-04-15] MEDS ORDERED: CO Q-10100 MG PO (22:05)
[2017-04-15] MEDS ORDERED: CENTRUM PO (22:06)
[2017-04-15] MEDS ORDERED: CYANO1000T PO (22:06)
[2017-04-15] MEDS ORDERED: MELATONIN5 M1 PO (22:06)
[2017-04-15] MEDS ORDERED: DSS PO (22:06)
[2017-04-15] MEDS ORDERED: PROBIOTIC PO (22:06)
[2017-04-15] MEDS ORDERED: MEGACEUDL PO (22:09)
[2017-04-15] MEDS ORDERED: PROZAC40 MG PO (22:10)
== END 2017-01-20 12:32 | disposition home or self-care (01) | DRG 871 ==
LOC: 4EA 10:26 → CCU 19:29 → 6NO 01-14 16:54
PROVIDERS: Internal Medicine; Internal Medicine Critical Care Medicine; Internal Medicine Pulmonary Disease
PROC: 30233N1 Transfusion of Nonautologous Red Blood Cells into Peripheral Vein, Percutaneous Approach (ICD-10-PCS; principal; 2017-01-09)
PROC: 30233R1 Transfusion of Nonautologous Platelets into Peripheral Vein, Percutaneous Approach (ICD-10-PCS; 2017-01-10)
DX: A41.81 Sepsis due to Enterococcus (principal); R65.21 Severe sepsis with septic shock; D61.818 Other pancytopenia; C92.Z0 Other myeloid leukemia not having achieved remission; K00.8 Other disorders of tooth development; E78.5 Hyperlipidemia, unspecified; E78.00 Pure hypercholesterolemia, unspecified; I10 Essential (primary) hypertension; F41.9 Anxiety disorder, unspecified; F32.9 Major depressive disorder, single episode, unspecified; Z92.21 Personal history of antineoplastic chemotherapy; Z79.4 Long term (current) use of insulin
CPT/HCPCS: 36415; 70487; 71010; 80048; 80053; 80069; 80076; 80170; 81001; 82272; 82533; 82947; 82962; 83036; 83605; 83735; 84100; 84145; 84443; 85014; 85018; 85025; 85610; 85730; 86850; 86900; 86901; 86920; 86922; 87040; 87077; 87150; 87177; 87186; 87641; 93005; A9270-GY; J0692; J1170; J1447; J1580; J1885; J2405; J2543; J3370; J3475; P9037; P9040; Q9967